=== PATIENT | female | born 1960 | race African-American/Black ===

== ENCOUNTER 2019-09-03 17:19 | Emergency (ER) | payer MEDICARE, MEDICAID ==
[~2019-09-03] VITALS: Ht 160 cm; Wt 73.5 kg
[2019-09-03 17:20] VITALS: BP_SYST 136
--- NOTE | 2019-09-03 17:20 | NUR ---
BROUGHT BACK TO BED #5 VIA WHEELCHAIR, PLACED IN BED #5 AND TRIAGED, REPORT GIVEN TO YOSHI
--- NOTE | 2019-09-03 17:28 | NUR ---
Patient arrived via POV with family. Per family they have been calling her for several hours with no answer when they became concerned. Patient states she hasnt slept in 2 days and took her medications around [id number]. She took Gabapentin 300mg; Xanax 0.5mg; and Restoril 30mg PO. Patient states she just took them to go to sleep, and that is why she didn't answer. We did ask if she had intentions to harm herself. Patient denies, states she only wanted to sleep. Patient calm and cooperative, and VSS. Will continue to follow up and monitor.
--- NOTE | 2019-09-03 17:36 | NUR ---
ER at bedside examining patient.
[2019-09-03 17:52] VITALS: BP_SYST 136
--- NOTE | 2019-09-03 17:53 | NUR ---
Patient given written and verbal discharge instructions and verbalizes understanding. ER MD discussed with patient the results and treatment provided. Patient in stable condition. ID arm band removed.Patient educated on pain management and to follow up with PMD. Pain Scale 0/10. Opportunity for questions provided and answered. Medication side effect fact sheet provided.
== END 2019-09-03 17:53 | disposition home or self-care (01) ==
LOC: SED 17:19
DX: T42.6X5A Adverse effect of other antiepileptic and sedative-hypnotic drugs, initial encounter (principal); T42.4X5A Adverse effect of benzodiazepines, initial encounter; Y92.89 Other specified places as the place of occurrence of the external cause
CPT/HCPCS: 99281